=== PATIENT | male | born 1995 | race African-American/Black ===

== ENCOUNTER 2017-06-11 17:26 | Emergency (ER) | payer BC, MEDICAID ==
[~2017-06-11] VITALS: Ht 182.9 cm; Wt 84.0 kg
[2017-06-11 17:27] VITALS: BP 136/96; PULSE 83; RESP 18; TEMP 98.7; O2SAT 98
--- NOTE | 2017-06-11 18:44 | RADRPT ---
EXAM DATE/TIME: 06/11/2017 18:12 [place] COMPARISON: No previous studies available for comparison. INDICATIONS : Patient complains of left shoulder pain status post football injury. MEDICAL HISTORY : None. SURGICAL HISTORY : None. ENCOUNTER: Initial ACUITY: 1 day PAIN SCORE: 9/10 LOCATION: Left Shoulder FINDINGS: Mild osteoarthritis is noted involving the left glenohumeral joint with osteophytic spurring inferior ly. No acute fracture or dislocation is noted. CONCLUSION: 1. No acute fracture or dislocation. 2. Mild osteoarthritis involving the left glenohumeral joint with osteophytic spurring inferiorly. Randy Hernandez MD on June 11, 2017 at 18:41 Board Certified Radiologist. This report was verified electronically.
[2017-06-11] MEDS ORDERED: MULTTAB67 PO (19:41)
[2017-06-11] MEDS ORDERED: FISHCAP4 PO (19:41)
--- NOTE | 2017-06-11 19:55 | PD ---
HPI Chief Complaint: Injury Time Seen by Provider: 19:44 Travel History International Travel<30 days: No Contact w/Intl Traveler<30days: No Traveled to known affect area: No History of Present Illness HPI 21-year-old male here for evaluation of left shoulder injury. The patient reports that he is from [place] and is here for an [place] [employer] football game to be placed on Wednesday. During practice today he fell onto an abducted left shoulder and experienced immediate pain. He was able to finish practice, however he has had continued pain. Pain is worse with movements, is moderate, improved with rest. Denies any other injuries. Reports history of labrum him injury to his left shoulder for which he chose nonoperative management. [facility] Past Medical History Diminished Hearing: No Immunizations Current: Yes Social History Alcohol Use: No Tobacco Use: No Substance Use: No Allergies-Medications (Allergen,Severity, Reaction): Coded Allergies: No Known Allergies (Verified Allergy, Unknown, 06/11/17) Reported Meds & Prescriptions Reported Meds & Active Scripts Active Reported Fish Oil + D3 (Fish Oil-Cholecalciferol) 1,200-1,000 Mg-Unit Cap 1 Cap PO DAILY Multiple Vitamin 1 Tab 1 Tab PO DAILY Review of Systems Except as stated in HPI: all other systems reviewed are Neg Physical Exam Narrative GENERAL: Well-developed, well-nourished, comfortable, no apparent distress. SKIN: Focused skin assessment warm/dry. No lacerations, abrasions, or ecchymosis. HEAD: Atraumatic. Normocephalic. EYES: Pupils equal and round. No scleral icterus. No injection or drainage. ENT: Mucous membranes pink and moist. NECK: Trachea midline. No JVD. No midline cervical spine step-off or tenderness. CARDIOVASCULAR: Regular rate and rhythm. Bilateral distal radial pulses are brisk and equal. MUSCULOSKELETAL: Left shoulder without obvious deformity with moderate diffuse tenderness with limited range of active motion secondary to pain, with full range of passive motion. All compartments in the left upper extremity are supple. The rest of his joints and extremities are without deformity, without tenderness, with normal range of motion. NEUROLOGICAL: Awake and alert. No obvious cranial nerve deficits. Motor grossly within normal limits. Normal speech. Left upper extremity is neurovascularly intact. PSYCHIATRIC: Appropriate mood and affect; insight and judgment normal. Data Data Last Documented VS Vital Signs Date Time Temp Pulse Resp B/P (MAP) Pulse Ox O2 Delivery O2 Flow Rate FiO2 06/11/17 17:27 98.7 83 18 136/96 (109) 98 Room Air Orders Orders Shoulder, Complete (>2vws) (06/11/17 ) Splint Or Brace Apply/Monitor (06/11/17 19:47) Ketorolac Inj (Toradol Inj) (06/11/17 20:00) MDM Medical Decision Making Medical Screen Exam Complete: Yes Emergency Medical Condition: Yes Differential Diagnosis Left shoulder fracture, left proximal humerus fracture, left clavicular fracture , shoulder dislocation, left shoulder contusion Narrative Course Left shoulder x-ray: CONCLUSION: 1. No acute fracture or dislocation. 2. Mild osteoarthritis involving the left glenohumeral joint with osteophytic spurring inferiorly. Patient is right-hand dominant. He was made aware of x-ray finding. Left upper extremity is neurovascularly intact. He will be placed in a shoulder sling and advised to remove the shoulder a couple of hours and range his left shoulder to prevent a frozen shoulder. 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 Diagnosis Primary Impression: Injury of left shoulder Qualified Codes: S49.92XA - Unspecified injury of left shoulder and upper arm , initial encounter Referrals: Orthopedist 1 week Primary Care Physician 1 week Additional Instructions: Follow-up with a primary care physician this week. Follow-up with an orthopedist this week. Removal arm from sling every couple of hours and range your left shoulder to prevent a frozen shoulder. Take Tylenol/ibuprofen for pain. Return to the emergency department for worsening symptoms or any other concerns. Disposition: 01 DISCHARGE HOME Condition: Stable Brandon Guzmán MD Jun 11, 2017 19:55
[2017-06-11] MEDS ORDERED: KETOROLAC TROMETHAMINE 60 MG/2 ML (IM) VIAL IM ONE (20:00)
== END 2017-06-11 20:28 | disposition home or self-care (01) ==
LOC: NEPD 17:26
DX: S49.92XA Unspecified injury of left shoulder and upper arm, initial encounter (principal); M19.012 Primary osteoarthritis, left shoulder; W18.30XA Fall on same level, unspecified, initial encounter; Y93.61 Activity, american tackle football
CPT/HCPCS: 73030; 96372; 99284; J1885